=== PATIENT | female | born 1975 | race Asian ===

== ENCOUNTER 2018-07-31 19:47 | Emergency (ER) | payer BC, OTHER ==
[2018-07-31 19:58] VITALS: BP 117/75
--- NOTE | 2018-07-31 20:19 | UC ---
Back Pain HPI - HPI Summary HPI Summary: 42-year-old woman comes in with chief complaint of right sciatic distribution pain. Yesterday she had some low back pain. She also injured her right great toe yesterday when she stubbed it. States that the toe feels better now. Swallowing when she woke up she had pain in her low back going down her right buttock down the right lateral leg all the way down into the foot. It's been having intermittent paresthesias in that leg. There is no numbness or weakness at this time. Pain is worse with movement of the right leg and twisting of the low back. No known trauma. No complaint of difficulty controlling urine or bowel. Patient has not had pain and numbness in this distribution in the past. - History of Current Complaint Chief Complaint: UCLowerExtremity Stated Complaint: LEG PAIN Time Seen by Provider: 07/31/18 20:08 Hx Last Menstrual Period: 07/04/18 Pain Intensity: 7 - Allergies/Home Medications Allergies/Adverse Reactions: Allergies Allergy/AdvReac Type Severity Reaction Status Date / Time No Known Allergies Allergy Verified 07/31/18 19:58 PMH/Surg Hx/FS Hx/Imm Hx Previously Healthy: Yes - Surgical History Surgical History: None - Family History Known Family History: Positive: Non-Contributory - Social History Alcohol Use: None Substance Use Type: None Smoking Status (MU): Never Smoked Tobacco Review of Systems All Other Systems Reviewed And Are Negative: Yes Constitutional: Positive: Negative Skin: Positive: Negative Eyes: Positive: Negative ENT: Positive: Negative Respiratory: Positive: Negative Cardiovascular: Positive: Negative Gastrointestinal: Positive: Negative Genitourinary: Positive: Negative Motor: Positive: Negative Neurovascular: Positive: Negative Musculoskeletal: Positive: Other: - SEE HPI Neurological: Positive: Paresthesia, Other - SEE HPI Psychological: Positive: Negative Is Patient Immunocompromised?: No Physical Exam Triage Information Reviewed: Yes Appearance: Well-Appearing, Well-Nourished, Pain Distress - MILD WITH ROM OF RT LEG Vital Signs: Initial Vital Signs Temp 98.9 F 07/31/18 19:52 Pulse 84 07/31/18 19:52 Resp 12 07/31/18 19:52 BP 117/75 07/31/18 19:52 Pulse Ox 100 07/31/18 19:52 Vital Signs Reviewed: Yes Eye Exam: Normal Eyes: Positive: Conjunctiva Clear Neck exam: Normal Neck: Positive: Supple Respiratory: Positive: No respiratory distress Musculoskeletal: Positive: Other: - The patient is mildly tender to palpation in the lumbar area on the right side of the spinous processes tender to palpation in the sciatic distribution down through the buttock into the leg. Leg has full range of motion full-strength no sensation deficit normal dorsalis pedis pulse. Low back pain is worse with hip flexion and extension. Neurological Exam: Normal Neurological: Positive: Alert, Muscle Tone Normal Psychological Exam: Normal Psychological: Positive: Age Appropriate Behavior Skin Exam: Normal Back Pain Course/Dx - Course Course Of Treatment: Patient is tender to palpation in the sciatic distribution. As There is no new trauma we did not get imaging tonight. This was all discussed with the patient. I also discussed with the patient she had any neurologic deficits such as weakness or numbness that persists she needs to get reevaluated again right away. The overall plan is anti-inflammatories and muscle relaxers as needed lidocaine patch as needed and follow-up with primary care doctor reevaluate sooner if worse or any questions or concerns. - Differential Dx/Diagnosis Provider Diagnosis: Right sided sciatica Discharge - Sign-Out/Discharge Documenting (check all that apply): Patient Departure All imaging exams completed and their final reports reviewed: No Studies - Discharge Plan Condition: Stable Disposition: HOME Prescriptions: Cyclobenzaprine TAB* [Flexeril 10 MG TAB*] 10 mg PO TID PRN #15 tab MDD 3 PRN Reason: Pain Patient Education Materials: Sciatica (ED), Lower Back Exercises (ED) Referrals: Jeremias Scanlon MD [Primary Care Provider] - Additional Instructions: FOLLOW UP WITH YOUR DOCTOR IF NOT COMPLETELY IMPROVED. TAKE IBUPROFEN 600MG EVERY 6 HOURS NEEDED. TRY LIDOCAINE PATCHES IF HELPFUL. GET RECHECKED FOR ANY WORSENING OF YOUR CONDITION; WEAKNESS, NUMBNESS, DIFFICULTY CONTROLLING BOWEL OR BLADDER OR QUESTIONS OR CONCERNS. - Billing Disposition and Condition Condition: STABLE Disposition: Home
== END 2018-07-31 20:25 | disposition home or self-care (01) ==
LOC: UCEAST 19:47
DX: M54.31 Sciatica, right side (principal)
CPT/HCPCS: 99212; G0463

== ENCOUNTER 2019-04-02 12:22 | Emergency (ER) | payer BC, OTHER ==
--- NOTE | 2019-04-02 13:14 | ED ---
HPI Chest Pain - HPI Summary HPI Summary: Pt is a 43 y/o F presenting to the ED brought in by EMS for chest pain initially onset about 3 wks ago when she was doing household things. She states it has been intermittent since onset, so she went to her PCP today, who did an EKG and recommended she come to the ED. They did a troponin which pts says was negative. She notes an intermittent whooshing sensation in her heart, and an episode of cramping, chills, and lightheadedness a couple of days ago during her menstrual period. She denies LE edema, dizziness, diaphoresis, nausea , vomiting, and shortness of breath. - History of Current Complaint Chief Complaint: EDChestWallPain Time Seen by Provider: 04/02/19 12:29 Hx Obtained From: Patient Hx Last Menstrual Period: 07/04/18 Onset/Duration: Started Weeks Ago, Still Present Timing: Intermittent, Lasting Hours Initial Severity: Moderate Current Severity: Mild Pain Intensity: 3 Pain Scale Used: 0-10 Numeric Chest Pain Location: Left Anterior Chest Pain Radiates: No Aggravating Factor(s): Nothing Alleviating Factor(s): Nothing Associated Signs and Symptoms: Positive: Chest Pain, Chills, Lightheadedness, Palpitations, Abdominal Pain. Negative: Dizziness, Shortness of Breath, Diaphoresis, Nausea, Calf Pain/Swelling, Vomiting - Allergy/Home Medications Allergies/Adverse Reactions: Allergies Allergy/AdvReac Type Severity Reaction Status Date / Time No Known Allergies Allergy Verified 04/02/19 12:26 Home Medications: Home Medications Albuterol inh POWDER (NF) [Proair Respiclick] 1 puff INH DAILY 04/02/19 [ History Confirmed 04/02/19] Fluticasone HFA 44 mcg(NF) [Flovent Hfa 44 mcg(NF)] 1 puff INH BID 04/02/19 [ History Confirmed 04/02/19] Fluticasone NASAL SPRAY 50MCG* [Flonase NASAL SPRAY 50MCG*] 2 spray BOTH NARES DAILY 04/02/19 [History Confirmed 04/02/19] Multivitamins/Minerals TAB* [Theragran/minerals TAB*] 1 tab PO DAILY 04/02/19 [ History Confirmed 04/02/19] Olopatadine 0.1% OPHTH (NF) [Patanol 0.1% OPHTH (NF)] 1 drop BOTH EYES DAILY [History Confirmed 04/02/19] PMH/Surg Hx/FS Hx/Imm Hx Previously Healthy: Yes Endocrine/Hematology History: Reports: Other Endocrine/Hematological Disorders - chiari 1 malformation Denies: Hx Diabetes Cardiovascular History: Denies: Hx Hypertension, Hx Pacemaker/ICD History: Denies: Hx Renal Disease Musculoskeletal History: Reports: Other Musculoskeletal History - fibromyalgia Sensory History: Denies: Hx Hearing Aid Psychiatric History: Denies: Hx Panic Disorder Infectious Disease History: No Infectious Disease History: Denies: Traveled Outside the [place] in Last 30 Days - Family History Known Family History: Positive: Cardiac Disease - grandmother MS @ 73, grandfather MS @ 61 - Social History Alcohol Use: None Hx Substance Use: No Substance Use Type: Reports: None Hx Tobacco Use: No Smoking Status (MU): Never Smoked Tobacco Review of Systems Positive: Chills. Negative: Skin Diaphoresis Positive: Palpitations, Chest Pain Negative: Shortness Of Breath Positive: Abdominal Pain. Negative: Vomiting, Nausea Negative: Edema Neurological: Negative - dizziness, Other - lightheadedness All Other Systems Reviewed And Are Negative: Yes Physical Exam - Summary Physical Exam Summary: Constitutional: Well-developed, Well-nourished, Alert. (-) Distressed Skin: Warm, Dry HENT: Normocephalic; Atraumatic Eyes: Conjunctiva normal Neck: Musculoskeletal ROM normal neck. (-) JVD, (-) Stridor, (-) Tracheal deviation Cardio: Rhythm regular, rate normal, Heart sounds normal; Intact distal pulses; The pedal pulses are 2+ and symmetric. Radial pulses are 2+ and symmetric. Pulmonary/Chest wall: Some tenderness along the chest wall on the L side of the sternum and along the costal margin of the breast on the L side, beneath the breast fold. Effort normal. (-) Respiratory distress, (-) Wheezes, (-) Rales Abd: Soft, (-) tenderness, (-) Distension, (-) Guarding, (-) Rebound Musculoskeletal: (-) Edema Neuro: Alert, Oriented x3 Psych: Mood and affect Normal Triage Information Reviewed: Yes Vital Signs On Initial Exam: Initial Vitals Temp Pulse Resp BP Pulse Ox 98.3 F 83 16 129/96 98 04/02/19 12:23 04/02/19 12:23 04/02/19 12:23 04/02/19 12:23 04/02/19 12:23 Vital Signs Reviewed: Yes Procedures - Sedation Patient Received Moderate/Deep Sedation with Procedure: No Diagnostics - Vital Signs Vital Signs Temp Pulse Resp BP Pulse Ox 04/02/19 13:00 18 04/02/19 12:54 97 20 133/89 97 04/02/19 12:26 78 11 98 04/02/19 12:24 80 12 129/96 99 04/02/19 12:23 98.3 F 83 16 129/96 98 - Laboratory Result Diagrams: 04/02/19 16:37 04/02/19 16:37 Lab Statement: Any lab studies that have been ordered have been reviewed, and results considered in the medical decision making process. - Radiology CXR Radiology Interpretation Completed By: Radiologist Summary of Radiographic Findings: No active cardiopulmonary disease. ED physician has reviewed this report. - EKG 1249 Cardiac Rate: NL - 85bpm EKG Rhythm: Sinus Rhythm ST Segment: Normal Ectopy: None EKG Comparison: No Significant Change Summary of EKG Findings: EKG at 1249 shows NSR at 85bpm with borderline L axis deviation, nonspecific T waves in abnml anteriolateral leads that are less significant than they are on EKG from this morning. No STEMI. ED physician has reviewed and interpreted this report. Chest Pain Course/Dx - Course Course Of Treatment: Pt is a 43 y/o F presenting to the ED brought in by EMS for chest pain initially onset about 3 wks ago that has been intermittent since then. Her PCP did an EKG and troponin today, her EKG had some abnormalities but her troponin was negative. She notes an intermittent whooshing sensation in her heart, and an episode of cramping, chills, and lightheadedness a couple of days ago during her menstrual period. She denies LE edema, dizziness, diaphoresis, nausea, vomiting, and shortness of breath. EKG at 1249 shows NSR at 85bpm with borderline L axis deviation, nonspecific T waves in abnml anteriolateral leads that are less significant than they are on EKG from this morning. No STEMI. HEART score is 2. CXR shows: No active cardiopulmonary disease. Pt's lab results are all normal, including 2nd troponin. She will be d/c'ed with dx of chest wall pain and nonspecific repolarization/T wave abnormalities. - Diagnoses Provider Diagnoses: Chest wall pain, Electrocardiogram showing T wave abnormalities Discharge ED - Sign-Out/Discharge Documenting (check all that apply): Patient Departure - Discharge Plan Condition: Stable Disposition: HOME Patient Education Materials: Chest Wall Pain (ED) Referrals: Jeremias Scanlon MD [Primary Care Provider] - - Billing Disposition and Condition Condition: STABLE Disposition: Home - Attestation Statements Document Initiated by Scribe: Yes Documenting Scribe: Natalie Holman Provider For Whom Екатерина is Documenting (Include Credential): Eber Prasad MD. Scribe Attestation: Natalie Gutierrez, hananeed for Eber Prasad MD. on 04/02/19 at 1857. Scribe Documentation Reviewed: Yes Provider Attestation: The documentation as recorded by the scribe, Natalie Holman accurately reflects the service I personally performed and the decisions made by me, Eber Prasad MD. Status of Scribe Document: Viewed
[2019-04-02 16:59] LABS: ABS Basophils 0.1 10^3/ul (0-0.2); ABS Eosinophils 0.2 10^3/ul (0-0.6); ABS Lymphocytes 2.1 10^3/ul (1.0-4.8); ABS Monocytes 0.5 10^3/ul (0-0.8); ABS Neutrophils 4.5 10^3/ul (1.5-7.7); Eosinophil % 2.7 %; Hematocrit 34 % (35-47); Hemoglobin 11.5 g/dL (12.0-16.0); Mean Corpuscular HGB Conc 34 g/dL (31-36); Mean Corpuscular Hemoglobin 28 pg (27-31); Mean Corpuscular Volume 83 fL (80-97); Mean Platelet Volume 8.8 fL (7.4-10.4); Platelet Count 293 10^3/uL (150-450); Red Blood Count 4.12 10^6 /uL (3.70-4.87); Red Cell Distribution Width 15 % (10-15); White Blood Count 7.4 10^3/uL (3.5-10.8)
[2019-04-02 17:17] LABS: HCG Pregnancy < 0.60 mIU/mL
[2019-04-02 17:48] LABS: ALT 16 U/L (7-52); AST 14 U/L (13-39); Albumin 3.9 g/dL (3.2-5.2); Albumin/Globulin Ratio 1.3 (1-3); Alkaline Phosphatase 66 U/L (34-104); Anion Gap 9 mmol/L (2-11); BUN/Creatinine Ratio 11.9 (8-20); Blood Urea Nitrogen 7 mg/dL (6-24); CO2 Carbon Dioxide 25 mmol/L (22-32); Calcium 9.1 mg/dL (8.6-10.3); Chloride 106 mmol/L (101-111); EGFR African American 133.4 (>60); EGFR Non-African American 110.2 (>60); Glucose 83 mg/dL (70-100); Indirect Bilirubin 0.2 mg/dL (0.3-1.0); Magnesium 2.2 mg/dL (1.9-2.7); Potassium 3.7 mmol/L (3.5-5.0); Sodium 140 mmol/L (135-145); Total Protein 6.9 g/dL (6.4-8.9)
[2019-04-02 18:04] VITALS: BP 116/77
== END 2019-04-02 17:59 | disposition home or self-care (01) ==
LOC: ED 12:22
DX: R07.89 Other chest pain (principal); R94.31 Abnormal electrocardiogram [ECG] [EKG]; G93.5 Compression of brain; Z79.51 Long term (current) use of inhaled steroids; Z79.899 Other long term (current) drug therapy
CPT/HCPCS: 36415; 71046; 80048; 80076; 83690; 83735; 84484; 84702; 85025; 93005; 99284

== ENCOUNTER 2019-04-30 13:39 | Emergency (ER) | payer BC, OTHER ==
--- OUTSIDE RECORDS SUMMARY | 2019-04-30 14:53 | XMS REPORT | Continuity of Care Document ---
:1975 External Reference #:[id number] Author Name Hellen Cali M.D. 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 Onset: 02/07/2017 Compression of brain Tom Champion M.D. Onset: 11/07/2017 Bilateral carpal tunnel syndrome Tom Champion M.D. Onset: 11/07/2017 Chronic fatigue syndrome Tom Champion M.D. Onset: 11/07/2017 Skin sensation disturbance Tom Champion M.D. Onset: 08/14/2018 Sciatica Tom Champion M.D. Onset: 08/14/2018 Neck pain Tom Champion M.D. Onset: 08/14/2018 Social History Type Date Description Comments Sex Unknown Tobacco Use Start: Unknown Never Smoked Cigarettes Smoking Status Reviewed: 04/05/19 Never Smoked Cigarettes ETOH Use Denies alcohol use Tobacco Use Start: Unknown Patient has never smoked Recreational Drug Use Denies Drug Use Exercise Type/Frequency Exercises regularly Allergies, Adverse Reactions, Alerts Active Allergies Reaction Severity Comments Date NKDA 01/03/2017 Penicillin V 04/05/2019 Medications Active Medications SIG Qnty Indications Ordering Provider Date Methylprednisolone take as 21units M54.41 Tom Champion, 4mg TBPK directed on M.D. 9 package [place] take 1 by mouth 14tabs Tom Champion, 5-325mg Tablets every 8 hours M.D. 9 as necessary for pain. Do not drive after taking [place] 3 1 by mouth 180caps Tom Champion, 1000mg Capsules twice a day M.D. 8 Olopatadine HCL Instill 1 Drop Unknown 0.1% Solution Into Both Eyes 0 Twice Daily as Needed Flovent HFA Inhale 2 Puffs Unknown 44mcg/Act Aerosol Twice Daily as 0 Needed Proair HFA as needed Unknown 108(90Base) 0 mcg/Act Aerosol Vitamin D 1 by mouth Unknown 2000Unit Capsules every day 0 Vitamin B-12 1 by mouth Unknown 1000mcg Tablets every day 0 Claritin One By Mouth Unknown Capsules Every Day as 0 Needed Flonase Allergy Relief as needed Unknown 0 50mcg/Act Suspension Immunizations Description No Information Available Vital Signs Date Vital Result Comment 04/05/2019 8:13am Height 59 inches 4'11" Weight 135.00 lb no shoes Heart Rate 72 /min BP Systolic Sitting 118 mmHg lue reg cuff BP Diastolic Sitting 70 mmHg lue reg cuff BP Systolic Standing 106 mmHg lue regcuff BP Diastolic Standing 68 mmHg lue regcuff Respiratory Rate 16 /min BMI (Body Mass Index) 27.3 kg/m2 09/07/2018 12:15pm Height 59 inches 4'11" Weight 131.12 lb Heart Rate 76 /min BP Systolic Sitting 92 mmHg BP Diastolic Sitting 72 mmHg Respiratory Rate 16 /min BMI (Body Mass Index) 26.5 kg/m2 Results Description No Information Available Procedures Date Code Description Status 04/05/2019 39637 EKG Tracing & Interpretation Completed Medical Devices Description No Information Available Encounters Description No Information Available Assessments Date Code Description Provider 04/05/2019 R94.31 Abnormal electrocardiogram [ECG] [EKG] Hellen Cali M.D. 04/05/2019 R07.9 Chest pain, unspecified Hellen Cali M.D. 04/05/2019 E66.9 Obesity, unspecified Hellen Cali M.D. 04/05/2019 R00.1 Bradycardia, unspecified Hellen Cali M.D. 04/05/2019 R06.83 Snoring Hellen Cali M.D. 04/05/2019 Z82.49 Family history of ischemic heart Hellen Cali M.D. disease and other diseases of the circulatory system Plan of Treatment Future Appointment(s):05/01/2019 11:00 am - [place] ECHO Schedule at [facility]05/01/2019 11:30 am - Hellen Cali M.D. at [facility]04/10/2019 3:00 pm - Traveling ECHO 1 at [facility] 11:00 am - Nurse Visit IC at [facility]04/17/2019 11:30 am - Nurse Visit IC at [facility]04/05/2019 - Hellen Cali M.D.R94.31 Abnormal electrocardiogram [ECG] [EKG]R07.9 Chest pain, unspecifiedNew Orders:Echocardiogram, Scheduled: 04/10/19Stress Test, Exercise Echocardiogram, Scheduled: 05/01/19Follow up:4-9 wks ov to discuss all zycksX47.9 Obesity, sdvfiknimhaT24.1 Bradycardia, unspecifiedNew Orders:24 hour holter monitor, Scheduled: 04/17/19R06.83 SnoringReferral:Krystal Dodson MD, Pulmonary NrxmvmvyJ34.49 Family history of ischemic heart disease and other diseases of the circulatory system Functional Status Description No Information Available Mental Status Description No Information Available Referrals Refer to Reason for Referral Status Appt Date Krystal Dodson MD consult for sleep apnea Created [address] [place] [address] [phone]
--- OUTSIDE RECORDS SUMMARY | 2019-04-30 14:53 | XMS REPORT | Continuity of Care Document ---
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 Onset: 02/07/2017 Neck pain Tom Champion M.D. Onset: 08/14/2018 Sciatica Tom Champion M.D. Onset: 08/14/2018 Skin sensation disturbance Tom Champion M.D. Onset: 08/14/2018 Chronic fatigue syndrome Tom Champion M.D. Onset: 11/07/2017 Bilateral carpal tunnel syndrome Tom Champion M.D. Onset: 11/07/2017 Compression of brain Tom Champion M.D. Onset: 11/07/2017 Social History Type Date Description Comments Sex Unknown ETOH Use Denies alcohol use Tobacco Use Start: Unknown Patient has never smoked Recreational Drug Use Denies Drug Use Smoking Status Reviewed: 09/07/18 Patient has never smoked Allergies, Adverse Reactions, Alerts Description No Known Drug Allergies Medications Active Medications SIG Qnty Indications Ordering Provider Date Methylprednisolone take as 21units M54.41 Tom Champion, 4mg TBPK directed on M.D. 9 package [place] take 1 by mouth 14tabs Tom Champion, 5-325mg Tablets every 8 hours M.D. 9 as necessary for pain. Do not drive after taking [place] 3 1 by mouth 180caps Tom Champion, [...] Available Vital Signs Date Vital Result Comment 09/07/2018 12:15pm Height 59 inches 4'11" Weight 131.12 lb Heart Rate 76 /min BP Systolic Sitting 92 mmHg BP Diastolic Sitting 72 mmHg Respiratory Rate 16 /min BMI (Body Mass Index) 26.5 kg/m2 08/14/2018 9:09am Height 59 inches 4'11" Weight 130.00 lb Heart Rate 78 /min BP Systolic 120 mmHg BP Diastolic 76 mmHg BMI (Body Mass Index) 26.3 kg/m2 Results Description No Information Available Procedures Description No Information Available Medical Devices Description No Information Available Encounters Description No Information Available Assessments Description No Information Available Plan of Treatment Future Appointment(s):04/05/2019 8:45 am - Hellen Cali M.D. at [facility]09/07/2018 - Tom Champion M.D.M54.41 Lumbago with sciatica, right sideNew Medication:Methylprednisolone 4 mg - take as directed on [id number] Paresthesia of skin Functional Status Description No Information Available Mental Status Description No Information Available Referrals Description No Information Available
--- OUTSIDE RECORDS SUMMARY | 2019-04-30 14:53 | XMS REPORT | Continuity of Care Document ---
:1975 External Reference #:[id number] Author Name Justin Che Care Team Providers Name Role Phone Jeremias Scanlon MD - Family Medicine Care Team Information Manager Of Data [phone] Problems Active Problems Provider Date Cervical spondylosis [...] 4mg TBPK directed on M.D. 9 package [place] take 1 by mouth 14tabs Tom Champion, 5-325mg Tablets every 8 hours M.D. 9 as necessary for pain. Do not drive after taking [place] 3 1 by mouth 180caps Tom Champion, [...] Description No Information Available Plan of Treatment 09/07/2018 - Tom Champion M.D.M54.41 Lumbago with sciatica, right sideNew Medication:Methylprednisolone 4 mg - take as directed on qdiyayzF45.2 Paresthesia of skin Functional Status Description No Information Available Mental Status Description No Information Available Referrals Description No Information Available
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
[2019-04-30 15:24] VITALS: BP 00/00
== END 2019-04-30 15:23 | disposition home or self-care (01) ==
LOC: ED 13:39
DX: M62.838 Other muscle spasm (principal); V49.50XA Passenger injured in collision with unspecified motor vehicles in traffic accident, initial encounter; Y92.410 Unspecified street and highway as the place of occurrence of the external cause
CPT/HCPCS: 99281